=== PATIENT | male | born 1930 | race Caucasian/White ===

== ENCOUNTER 2017-02-15 09:59 | Emergency (ER) | payer OTHER, BC ==
[~2017-02-15] VITALS: Ht 175.3 cm; Wt 82.2 kg
[2017-02-15 10:46] LABS: BASOPHIL COUNT 0.1 K/uL (0-0.1); EOSINOPHIL (%) 2.9 % (0-5); EOSINOPHIL COUNT 0.3 K/uL (0-0.3); HEMATOCRIT 42.9 % (38.0-50.0); IMMATURE GRANULOCYTE (%) 0.3 % (0.0-0.7); INSTRUMENT ABS NEUTROPHIL CT 7.3 K/uL; LYMPHOCYTE COUNT 1.6 K/uL (1.0-2.8); MCH 31.5 PG (29.0-34.0); MCHC 32.9 G/DL (30.0-36.0); MEAN PLAT.VOLUME 9.7 uM^3 (9.0-12.4); MONOCYTE (%) 6.6 % (3-12); MONOCYTE COUNT 0.7 K/uL (0-0.8); NEUTROPHIL (%) 73.4 % (45-76); NEUTROPHIL COUNT 7.3 K/uL (1.8-6.4); PLATELET COUNT 545 K/uL (156-360); RBC DIS.WIDTH-CV 13.8 % (11.8-14.6); RBC DIS.WIDTH-SD 48.6 % (39-53); RED BLOOD COUNT 4.47 M/uL (4.00-5.50); WHITE BLOOD COUNT 9.9 K/uL (4.1-10.2)
[2017-02-15 10:58] LABS: INTER. NORMALIZED RATIO 1.5; PROTHROMBIN TIME 16.5 SEC (10.2-12.9)
[2017-02-15 11:05] LABS: CHLORIDE 102 mEq/L (99-109); POTASSIUM 4.2 mEq/L (3.7-5.4); SODIUM 137 mEq/L (136-147)
[2017-02-15 11:06] LABS: GLUCOSE 329 mg/dL (70-99)
[2017-02-15 11:08] LABS: ANION GAP 13 MEQ/L (2-14)
[2017-02-15 11:10] LABS: GFR ESTIMATE (CALCULATED) > 59 mL/min/
[2017-02-15 11:11] LABS: UREA NITROGEN (BUN) 17 mg/dL (9-23)
[2017-02-15 12:31] VITALS: BP 156/71
== END 2017-02-15 12:36 | disposition home or self-care (01) ==
LOC: EME 09:59
PROVIDERS: Emergency Medicine
DX: R04.0 Epistaxis (principal); I48.91 Unspecified atrial fibrillation; Z79.01 Long term (current) use of anticoagulants; I25.2 Old myocardial infarction; Z95.1 Presence of aortocoronary bypass graft
CPT/HCPCS: 80048; 85025; 85610; 99281; 99284

== ENCOUNTER 2017-04-13 12:03 | Inpatient (IN) | payer OTHER, BC ==
[~2017-04-13] VITALS: Ht 175.3 cm; Wt 78.9 kg
[2017-04-13 14:12] LABS: HEMATOCRIT 36.1 % (38.0-50.0); MCH 31.6 PG (29.0-34.0); MEAN PLAT.VOLUME 9.2 uM^3 (9.0-12.4); PLATELET COUNT 825 K/uL (156-360); RBC DIS.WIDTH-CV 14.7 % (11.8-14.6); RBC DIS.WIDTH-SD 50.6 % (39-53); RED BLOOD COUNT 3.76 M/uL (4.00-5.50); WHITE BLOOD COUNT 15.3 K/uL (4.1-10.2)
[2017-04-13 14:17] LABS: CHLORIDE 101 mEq/L (99-109); POTASSIUM 4.6 mEq/L (3.7-5.4); SODIUM 137 mEq/L (136-147)
[2017-04-13 14:19] LABS: GLUCOSE 134 mg/dL (70-99)
[2017-04-13 14:20] LABS: ANION GAP 11 MEQ/L (2-14)
[2017-04-13 14:23] LABS: GFR ESTIMATE (CALCULATED) > 59 mL/min/
[2017-04-13 14:24] LABS: UREA NITROGEN (BUN) 28 mg/dL (9-23)
[2017-04-13 15:03] LABS: ADD MIUA? YES; BILIRUBIN NEGATIVE; BLOOD NEGATIVE; COLOR YELLOW ((YELLOW)); GLUCOSE (STRIP) NEGATIVE; KETONES 20; LEUKOCYTES NEGATIVE; NITRITE NEGATIVE; PROTEIN (STRIP) 30; SPECIFIC GRAVITY 1.024 (1.000-1.030)
[2017-04-13 15:08] LABS: BACTERIA NONE SEEN /HPF; EPITHELIAL CELLS NONE SEEN /HPF; MUCUS TRACE /LPF; RED BLOOD CELLS 0-5 /HPF (0-5); UCUL ADDED? NO; WHITE BLOOD CELLS 0-5 /HPF (0-5)
[2017-04-13] MEDS ORDERED: PRAVACHOL20 MG PO (17:47)
[2017-04-13] MEDS ORDERED: XARELTO20 MG PO (17:47)
[2017-04-13] MEDS ORDERED: LO-DOSE ASPIRIN81 M1 PO (17:48)
[2017-04-13] MEDS ORDERED: CINNAMON500 MG PO (17:48)
[2017-04-13] MEDS ORDERED: TYLENOL ARTHRI650 MG PO (17:49)
[2017-04-13] MEDS ORDERED: BIOFREEZE TP (17:51)
[2017-04-13] MEDS ORDERED: COLLAGEN PEPTIDES PO (17:53)
[2017-04-13] MEDS ORDERED: LEG CRAMPS PO (17:56)
[2017-04-13 21:54] VITALS: BP 128/60
[2017-04-14 03:23] VITALS: BP 115/62
[2017-04-14 06:39] LABS: BASOPHIL COUNT 0.1 K/uL (0-0.1); EOSINOPHIL (%) 2.6 % (0-5); EOSINOPHIL COUNT 0.4 K/uL (0-0.3); HEMATOCRIT 30.6 % (38.0-50.0); IMMATURE GRANULOCYTE (%) 0.6 % (0.0-0.7); IMMATURE GRANULOCYTE COUNT 0.1 K/uL; INSTRUMENT ABS NEUTROPHIL CT 9.6 K/uL; LYMPHOCYTE COUNT 2.2 K/uL (1.0-2.8); MCH 30.9 PG (29.0-34.0); MCV 96.5 FL (86-99); MEAN PLAT.VOLUME 9.4 uM^3 (9.0-12.4); MONOCYTE (%) 9.2 % (3-12); MONOCYTE COUNT 1.3 K/uL (0-0.8); NEUTROPHIL (%) 70.6 % (45-76); NEUTROPHIL COUNT 9.6 K/uL (1.8-6.4); PLATELET COUNT 686 K/uL (156-360); RBC DIS.WIDTH-CV 14.6 % (11.8-14.6); RBC DIS.WIDTH-SD 50.4 % (39-53); RED BLOOD COUNT 3.17 M/uL (4.00-5.50); WHITE BLOOD COUNT 13.6 K/uL (4.1-10.2)
[2017-04-14 06:58] LABS: ANION GAP 9 MEQ/L (2-14); C-REACTIVE PROTEIN 13.4 MG/L (0-10); CHLORIDE 104 MEQ/L (99-109); GFR ESTIMATE (CALCULATED) > 59 mL/min/; GLUCOSE 110 mg/dL (70-99); POTASSIUM 4.6 MEQ/L (3.7-5.4); SAMPLE HEMOLYSIS CHECK 0; SAMPLE ICTERIC CHECK 0; SAMPLE LIPEMIA CHECK 0; SODIUM 137 MEQ/L (136-147); UREA NITROGEN (BUN) 23 mg/dL (9-23)
[2017-04-14 07:06] VITALS: BP 126/59
[2017-04-14 09:16] LABS: ERTH.SED.RATE 2 MM/HR (0-20)
[2017-04-14 10:59] VITALS: BP 112/55
[2017-04-14 13:35] LABS: ALKALINE PHOSPHATASE 38 IU/L (3-129); DIRECT BILIRUBIN 0.2 mg/dL (0.0-0.3); TOTAL BILIRUBIN 0.9 MG/DL (0.0-1.0)
[2017-04-14 14:17] LABS: CREATINE KINASE 86 IU/L (1-294)
[2017-04-14 14:21] LABS: HEMATOCRIT 34.4 % (38.0-50.0); MCV 96.1 FL (86-99)
[2017-04-14 15:05] VITALS: BP 115/56
[2017-04-14 19:25] VITALS: BP 127/65
[2017-04-15 00:27] VITALS: BP 109/65
[2017-04-15 04:03] VITALS: BP 146/73
[2017-04-15 06:59] VITALS: BP 148/66
[2017-04-15] MEDS ORDERED: KEFLEX500 MG PO (08:15)
[2017-04-15 10:20] LABS: HEMATOCRIT 34.1 % (38.0-50.0); MCH 30.9 PG (29.0-34.0); MCHC 32.3 G/DL (30.0-36.0); MCV 95.8 FL (86-99); MEAN PLAT.VOLUME 9.3 uM^3 (9.0-12.4); PLATELET COUNT 693 K/uL (156-360); RBC DIS.WIDTH-CV 14.9 % (11.8-14.6); RBC DIS.WIDTH-SD 51.7 % (39-53); RED BLOOD COUNT 3.56 M/uL (4.00-5.50); WHITE BLOOD COUNT 14.3 K/uL (4.1-10.2)
[2017-04-15 10:55] VITALS: BP 125/73
[2017-04-15 11:02] LABS: ANION GAP 9 MEQ/L (2-14); CHLORIDE 104 MEQ/L (99-109); GFR ESTIMATE (CALCULATED) > 59 mL/min/; POTASSIUM 4.4 MEQ/L (3.7-5.4); SAMPLE HEMOLYSIS CHECK 0; SAMPLE ICTERIC CHECK 0; SAMPLE LIPEMIA CHECK 0; SODIUM 136 MEQ/L (136-147); UREA NITROGEN (BUN) 18 mg/dL (9-23)
[2017-04-15 11:05] LABS: GLUCOSE 179 mg/dL (70-99)
== END 2017-04-15 12:37 | disposition home health service (06) | DRG 603 ==
LOC: EME 12:03 → EDOF 19:41 → 5SOUTH 19:41 → ENRESERV 19:48 → 5SOUTH 21:21
PROVIDERS: Hospitalist; Physician Assistant Medical
DX: L03.116 Cellulitis of left lower limb (principal); S80.12XA Contusion of left lower leg, initial encounter; I70.203 Unspecified atherosclerosis of native arteries of extremities, bilateral legs; I48.0 Paroxysmal atrial fibrillation; D62 Acute posthemorrhagic anemia; E78.00 Pure hypercholesterolemia, unspecified; I25.10 Atherosclerotic heart disease of native coronary artery without angina pectoris; Z79.01 Long term (current) use of anticoagulants; Z95.1 Presence of aortocoronary bypass graft; I25.2 Old myocardial infarction; E78.5 Hyperlipidemia, unspecified
CPT/HCPCS: 70450; 71020; 73706; 80048; 80076; 80202; 81003; 82550; 85014; 85018; 85025; 85027; 85651; 86140; 93005; 93971; 99281; 99285; J0690; J3370; J7030